=== PATIENT | male | born 1990 | race African-American/Black ===

== ENCOUNTER 2022-04-21 08:59 | Day surgery (SDC) | payer OTHER ==
[~2022-04-21] VITALS: Ht 175.3 cm; Wt 128.8 kg
[~2022-04-21 08:59] MED LIST: DICY20TA20 PO; FLUO20CA22 PO; METO10TA2 PO; MICR1TAB5 PO; ceFAZolin SOD 2 GM in IV 1 EA IV ONE
[2022-04-21] MEDS ORDERED: LIDOCAINE 2% 100MG/5ML SDV (FOR ANES.) As Ordered ONE (09:45)
[2022-04-21] MEDS ORDERED: MIDAZOLAM INJ 2MG/2ML VIAL As Ordered ONE (09:45)
[2022-04-21] MEDS ORDERED: fentaNYL 100 MCG/2 ML INJECTION As Ordered ONE (09:45)
[2022-04-21] MEDS ORDERED: propofoL 200 MG/20 ML VIAL As Ordered ONE (09:45)
[2022-04-21] MEDS ORDERED: LR 1,000 ML IV SCH (09:50)
[2022-04-21] MEDS ORDERED: BUPIVACAINE HCL 0.25% 10ML VIAL As Ordered ONE (10:28)
[2022-04-21] MEDS ORDERED: LIDOCAINE 1% MDV 20ML VIAL As Ordered ONE (10:29)
[2022-04-21] MEDS ORDERED: BUPIVACAINE HCL 0.25% 30ML VIAL As Ordered ONE (10:42)
[2022-04-21 12:08] VITALS: BP 124/84
== END 2022-04-21 12:24 | disposition home or self-care (01) ==
LOC: M SDC 08:59
PROVIDERS: ATTEND Podiatrist Foot & Ankle Surgery
DX: M25.872 Other specified joint disorders, left ankle and foot (principal); G47.30 Sleep apnea, unspecified; Z88.6 Allergy status to analgesic agent; Z79.899 Other long term (current) drug therapy
CPT/HCPCS: 28292; 88300; J1100